=== PATIENT | male | born 1935 | race Caucasian/White ===

== ENCOUNTER → 2016-08-02 | Outpatient (CLI) | payer OTHER, MEDICARE ==
--- NOTE | 2016-08-02 09:21 | MR ---
MRI Right Hip Without Contrast History: Right hip pain. Severe right hip and groin pain which did not improve with physical therapy. Decreased range of motion. Comparison: Radiograph July 18, 2016. Technique: MRI was performed of the right hip and pelvis using a 1.5 Bettie MRI system. Large field-of -view coronal and axial imaging was obtained of the pelvis. Small [id number] oblique axial, oblique coronal, and sagittal imaging was obtained of the right hip. Findings: Mild periarticular spurring is seen in the femoral head and acetabulum. There is near full- thickness cartilage loss superiorly of the femoral head and acetabulum. There is prominent subcortica l bone marrow edema. There is a moderate joint effusion with synovial proliferation. There is a nondi splaced labral tear throughout the anterior, superior, and posterior labrum with adjacent paralabral cysts. The largest paralabral cyst is in the 11-12 o'clock position measuring 16 mm. Postsurgical changes are seen of a left total hip arthroplasty. No evidence for sacroiliitis. Degener ative disk and degenerative joint disease is seen in the lower lumbar spine. Mild edema is seen in th e gluteus tendon insertion to both greater trochanters. The other visualized musculature and tendons are unremarkable. Impression: 1. Moderate to severe degenerative change in the right hip with nondisplaced labral tear throughout a nd paralabral cysts. Moderate joint effusion with synovial proliferation. Degenerative change is more severe than implied by the x-ray findings of the right hip. 2. Postsurgical changes of left total hip arthroplasty. 3. 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
== END ==
LOC: FIMAGING 06:35
PROVIDERS: ATTEND Internal Medicine
DX: M16.11 Unilateral primary osteoarthritis, right hip (principal); M51.86 Other intervertebral disc disorders, lumbar region

== ENCOUNTER 2016-09-07 10:14 | Inpatient (IN) | payer OTHER, MEDICARE ==
[~2016-09-07 10:14] MED LIST: ACETAMINOPHEN 325 MG TAB PO ONE; CEFAZOLIN 2 GM/DEXTR 100 ML IV ONE; CHLORHEXIDINE GLUC HIBICLENS 118 ML BTL TP ONE; DEXAMETHASONE 4 MG/ML VIAL IVP ONE; FAMOTIDINE 20 MG TAB PO ONE; ROPI/epiNEPH/KETOROLAC JOINT COCKTAIL IU ONE; SKIN ADHESIVE (DERMABOND) 1 EACH TP ONE; TRANEXAMIC ACID 3,000 MG in NS 50 ML IRR ONE; TRANEXAMIC ACID 3,000 MG/50 ML BAG IRR ONE
[2016-09-07] MEDS ORDERED: DEXAMETHASONE 4 MG/ML VIAL ONE (10:35)
[2016-09-07] MEDS ORDERED: FAMOTIDINE 20 MG TAB ONE (10:35)
[2016-09-07] MEDS ORDERED: ACETAMINOPHEN 325 MG TAB ONE (10:35)
[2016-09-07] MEDS ORDERED: LIDOCAINE 1% 5 ML SDV ONE (10:36)
[2016-09-07] MEDS ORDERED: CEFAZOLIN 2 GM/DEXTROSE/100 ML BAG IV ONE (10:36)
[2016-09-07] MEDS ORDERED: LR 1,000 ML IV ONE (11:21)
[2016-09-07] MEDS ORDERED: LIDOCAINE 1% 5 ML SDV ID PRN (11:21)
[2016-09-07] MEDS ORDERED: MIDAZOLAM 2 MG/2 ML VIAL ONE (11:53)
[2016-09-07] MEDS ORDERED: PROPOFOL/EMULSION 500 MG/50 ML BOTTLE IV ONE (12:02)
[2016-09-07] MEDS ORDERED: TEMAZEPAM 15 MG CAP PO PRN (12:47)
[2016-09-07] MEDS ORDERED: DIPHENOXYLATE/ATROPINE LOMOTIL 1 TAB PO PRN (12:47)
[2016-09-07] MEDS ORDERED: PROMETHAZINE HCL 25 MG SUPPR PR PRN (12:47)
[2016-09-07] MEDS ORDERED: ONDANSETRON 4 MG/2 ML VIAL IVP PRN (12:47)
[2016-09-07] MEDS ORDERED: PHARMACY PAIN CONSULT 1 EA MISC PRN (12:47)
[2016-09-07] MEDS ORDERED: METOCLOPRAMIDE 10 MG/2 ML VIAL IVP PRN (12:47)
[2016-09-07] MEDS ORDERED: MAGNESIUM HYDROXIDE 30 ML UDCUP PO PRN (12:47)
[2016-09-07] MEDS ORDERED: PROMETHAZINE HCL 25 MG/ML INJ IVP PRN (12:47)
[2016-09-07] MEDS ORDERED: LACTULOSE 20 GM/30 ML UDCUP PO PRN (12:47)
[2016-09-07] MEDS ORDERED: BISACODYL 10 MG SUPP PR PRN (12:47)
[2016-09-07] MEDS ORDERED: diphenhydrAMINE 25 MG CAP PO PRN (12:47)
[2016-09-07] MEDS ORDERED: CYCLOBENZAPRINE 10 MG TAB PO PRN (12:47)
[2016-09-07] MEDS ORDERED: POLYETHYLENE GLYCOL 3350 17 GM PKT PO PRN (12:47)
[2016-09-07] MEDS ORDERED: ONDANSETRON DISINTEGRATING 4 MG TAB PO PRN (12:47)
[2016-09-07] MEDS ORDERED: LR 1,000 ML IV SCH (13:00)
[2016-09-07] MEDS ORDERED: LIDOCAINE 2% 100 MG/5 ML SYR IVP ONE (13:28)
--- NOTE | 2016-09-07 13:28 | POSTOPPROG ---
Post Op Note Date of Operation: 09/07/16 Surgeon: Carline Rey Drop Shipment Clerk: Elsie Rey PAc Anesthesiologist: Rigoberto Anesthesia: Spinal Pre-op Diagnosis: R hip DJD Post-op Diagnosis: same Indication: Pain Procedure: R AARON Findings: DJD hip Inf/Abcess present in the surg proc area at time of surgery?: No EBL: 100-500
[2016-09-07] MEDS ORDERED: ceFAZolin 2 GM/DEXTROSE 100 ML IV SCH (14:00)
--- NOTE | 2016-09-07 14:37 | DX ---
Intraoperative Fluoroscopy of the Right Hip Clinical history: 81-year-old male undergoing a right hip arthroplasty. Findings: Dr. Salbador Rey used 2.7 seconds of fluoroscopy time with an exposure dose of 0.37 mGy, and 2 spot matrix intraoperative images were acquired at 1:08 PM identifying the prosthetic acetabul ar cup and the temporary femoral intramedullary jig, each of which is seen anatomically aligned. Impression: Intraoperative fluoroscopy during an ongoing right hip arthroplasty.
--- NOTE | 2016-09-07 14:42 | DX ---
Portable Pelvis Indication: Postop hip arthroplasty, anterior approach. Comparison: Pelvis dated July 18, 2016. Findings: A new right total hip arthroplasty is anatomically aligned and well seated. No perihardware fracture or lucency. Expected subcutaneous and intraarticular gas. The left total hip arthroplasty i s well seated. Ligatures from previous hernia repair are unchanged. Impression: New well-seated right total hip arthroplasty.
[2016-09-07] MEDS: ACETAMINOPHEN 325 MG TAB PO SCH ×2 (18:21→23:58)
[2016-09-07 19:22] VITALS: RESP 14
[2016-09-07] MEDS: ceFAZolin 2 GM in D5W 100 ML IV SCH (20:01)
[2016-09-07] MEDS: ASPIRIN 325 MG TAB PO SCH (20:05)
[2016-09-07] MEDS: SENNOSIDES/DOCUSATE SODIUM TAB PO SCH (20:06)
[2016-09-07] MEDS: FAMOTIDINE 20 MG TAB PO SCH (20:06)
--- NOTE | 2016-09-07 22:51 | GOP ---
[f rep st] OPERATIVE REPORT DATE OF OPERATION: 09/07/2016 SURGEON: Verito Rey MD V BELT BUILDER: Elsie Rey PA-C ANESTHESIA: Spinal. PREOPERATIVE DIAGNOSIS: Right hip osteoarthritis. POSTOPERATIVE DIAGNOSIS: Right hip osteoarthritis. PROCEDURE PERFORMED: Right total hip arthroplasty. FINDINGS: ESTIMATED BLOOD LOSS: 200 cc. IMPLANTS: Accolade II size 8 at 127, acetabular component a 60 mm Tritanium. The liner is a Trident X3 36 mm. The head is a Biolox Delta 36 mm +0. INDICATIONS: The patient has progressively worsening arthritis of the hip which has failed medical management. The patient understands the treatment options including continued non-operative care and has selected surgical intervention. The patient has decided to undergo total hip arthroplasty via the direct anterior approach, understanding the risks of the procedure including , but not limited to, neurovascular injury, infection, persistent pain, component wear and loosening, deep venous thrombosis, pulmonary embolism, limb length inequality, hip instability (including dislocation), and intra-operative fractures. DESCRIPTION OF PROCEDURE: After proper identification of the patient including verification and marking the surgical site, the patient was brought to the operating room and placed in the supine position. All bony prominences were well padded. Anesthesia was induced without complication and intravenous prophylactic antibiotics were administered prior to skin incision. The operative leg was placed in the Trumpf Arch table extension and the well leg in a Yellofin leg mcmahan. The patient was prepped and draped in the usual sterile fashion. The C-arm was draped for intra-operative fluoroscopy to check acetabular position, femoral component position including leg length and femoral offset. Attention was then drawn to surgical exposure of the hip. An incision was made with a #10 Bard Sebas blade starting 3 cm lateral and 3 cm distal to the anterior superior iliac spine measuring 8-10 cm and coursing distally toward the greater trochanter. The skin and subcutaneous tissues were divided sharply down to the fascia sonia. The fascia sonia was incised in line with the skin incision exposing the underlying tensor fascia sonia muscle. The muscle was bluntly elevated from the fascia and the first extracapsular Cobra retractor was placed laterally at the junction of the superior femoral neck and greater trochanter. The lateral femoral circumflex vessels were identified, cauterized , and divided with the Aquamantys bipolar cautery. The deep investing fascia of the TFL was divided to allow proper mobilization of the muscle preventing damage during the retraction. The reflected head of the rectus femoris muscle was elevated off the anterior hip capsule and a medial Cobra retractor was placed just proximal to the lesser trochanter. The anterior capsulotomy was made sharply from the superolateral acetabulum to the saddle junction of the superior femoral neck and greater trochanter, then coursing inferomedial towards the lesser trochanter. The retractors were then placed in the intracapsular position for femoral neck osteotomy. Corresponding to pre-operative templating, the osteotomy was made with the oscillating saw carefully protecting the greater trochanter and soft tissues. The femoral head was removed from the acetabulum with a corkscrew and confirmed to be severely arthritic with exposed bone, deformity and osteophytes. Similar findings were confirmed in the acetabulum. The Arch table extension was then placed in 40 degrees external rotation. Attention was then drawn to the acetabular preparation. After placement of the anterior and posterior Cobra retractors outside the labrum and intracapsular, the circumferential labrum was removed sharply. The foveal contents were then removed and hemostasis obtained with cautery. The first reamer selected was sized using the removed femoral head. Reaming began with medialization and then commenced in 2 mm increments at 45 degrees of abduction and 15 degrees of anteversion using fluoroscopic navigation. Reaming ceased 1 mm less than the definitive acetabular component and corresponded to the pre-operative templating. The final acetabular component was inserted using fluoroscopy to achieve proper orientation yielding excellent purchase and stability in the acetabulum. The final acetabular liner was then placed and its seating confirmed. Attention was then turned to the femur. The Arch table extension was placed in extension and adduction, delivering the osteotomized femoral neck into the wound. A 2-pronged femoral elevator was placed at the calcar and another at the tip of the greater trochanter. The posterolateral capsule was released with cautery allowing mobilization of the femur lateral and anterior for preparation. The external rotators were visualized and preserved. A curette and rongeur were used to open the starting point for broaching. Serial broaching started with the #0 broach and ended with the broach that exhibited excellent fit in the proximal femur. A change in pitch during mallet strikes was accompanied by the inability to advance the broach any further. The trial reduction was performed and fluoroscopic navigation was utilized to check limb length. Adjustments were made to equalize limb length accordingly. After the final trials were accepted they were removed and the wound was copiously lavaged. The femoral component was seated to the same depth as the final broach and the femoral head was impacted onto the clean trunnion. The hip was then reduced for the final time and once more fluoroscopy was used to check that limb length equality was achieved. The wound was irrigated and closed in layers, the fascia sonia with 2-0 Quill, the subcutaneous tissue with 2-0 Quill, and the skin with Dermabond. Sterile dressings were applied. Final sharps and sponge counts were accurate. The patient was then transferred to a hospital bed and brought to the recovery room in stable condition. /[id number]/MODL MTDD
[2016-09-08] MEDS: ceFAZolin 2 GM in D5W 100 ML IV SCH (03:45)
[2016-09-08] MEDS: ACETAMINOPHEN 325 MG TAB PO SCH ×2 (04:51→11:16)
[2016-09-08 05:01] VITALS: O2SAT 93
[2016-09-08 05:59] LABS: ANION GAP 8 mEq/L (8-16); CALCIUM 9.6 mg/dL (8.5-10.4); CARBON DIOXIDE 22 mEq/l (22-31); CHLORIDE 110 mEq/L (97-110); CREATININE 0.9 mg/dL (0.7-1.3); GLOMERULAR FILTRATION RATE > 60; GLUCOSE 105 mg/dL (70-100); POTASSIUM 4.3 mEq/L (3.5-5.2); SODIUM 140 mEq/L (134-144)
[2016-09-08] MEDS ORDERED: LEVOTHYROXINE 50 MCG TAB PO SCH (06:00)
[2016-09-08 06:11] LABS: HEMATOCRIT 41.4 % (40.0-51.0); HEMOGLOBIN 14.1 g/dL (13.7-17.5)
[2016-09-08 07:42] VITALS: BP 143/79; PULSE 55; TEMP 98.9
[2016-09-08] MEDS ORDERED: LISINOPRIL 5 MG TAB PO SCH (09:00)
[2016-09-08] MEDS ORDERED: NORVASC 10 MG PO SCH (09:00)
[2016-09-08] MEDS: oxyCODONE IR 5 MG TAB PO PRN ×2 (09:07→11:16)
[2016-09-08] MEDS: ASPIRIN 325 MG TAB PO SCH (09:09)
[2016-09-08] MEDS: FAMOTIDINE 20 MG TAB PO SCH (09:09)
[2016-09-08] MEDS: SENNOSIDES/DOCUSATE SODIUM TAB PO SCH (09:12)
--- NOTE | 2016-09-08 09:14 | SOAPPROG ---
SOAP Progress Note Assessment/Plan: Assessment: Flip is doing well POD 1 s/p R AARON 1. pain management: pain is well controlled on oral pain meds 2. VTE ppx: recommend ASA for 3 weeks daily, cont JOSETTE hose and SCDs. 3. anemia: level expected initially postop, asymptomatic. continue to monitor for symptoms 4. d/c planning: d/c to home pending release from PT Plan: 09/08/16 09:10 Subjective: Flip is doing well today, denies SOB, chest pain and N/V. Objective: Vital Signs Temp Pulse Resp BP Pulse Ox 37.2 C 55 L 14 143/79 H 93 09/08/16 07:41 09/08/16 07:41 09/08/16 07:41 09/08/16 07:41 09/08/16 07:41 Laboratory Results 09/08/16 05:20 09/08/16 05:20 09/07/16 09/08/16 09/09/16 05:59 05:59 05:59 Intake Total 3400 Output Total 600 Balance 2800 RLE: incision dressing is clean and dry, NVI, +pf/df ICD10 Worksheet Patient Problems: Problems Problem Status Diagnosed Primary localized osteoarthritis of right hip Acute
== END 2016-09-08 11:19 | disposition home or self-care (01) | DRG 470 ==
LOC: F3N 10:14
PROVIDERS: ADMIT Orthopaedic Surgery; ATTEND Orthopaedic Surgery
PROC: 0SR904Z Replacement of Right Hip Joint with Ceramic on Polyethylene Synthetic Substitute, Open Approach (ICD-10-PCS; principal; 2016-09-07 12:15)
DX: M16.11 Unilateral primary osteoarthritis, right hip (principal); I10 Essential (primary) hypertension; E03.9 Hypothyroidism, unspecified
CPT/HCPCS: 97116-GP; 97161-GP; 97165-GO; G8978-GP-CI; G8979-GP-CI; G8980-GP-CI; G8987-GO-CI; G8988-GO-CI; G8989-GO-CI; J0171; J0690; J1100; J1885; J2001; J2250; J2704; J2795

== ENCOUNTER → 2018-09-12 | Outpatient (CLI) | payer OTHER, MEDICARE | LOC: BHFA 11:30 | PROVIDERS: ATTEND Internal Medicine Interventional Cardiology | DX: I35.9 Nonrheumatic aortic valve disorder, unspecified (principal) ==